=== PATIENT | female | born 1950 | race Caucasian/White ===

== ENCOUNTER 2018-01-29 08:02 | Emergency (ER) | payer MEDICARE, OTHER ==
[~2018-01-29] VITALS: Ht 175.3 cm; Wt 69.8 kg
--- OUTSIDE RECORDS SUMMARY | ~2018-01-29 | XMS | Clinical Summary ---
Demographics + + + | Address | [address] | | | [place] [address] | + + + | Home Phone | | + + + | Preferred Language | Unknown | + + + | Marital Status | | + + + | Confucianism Affiliation | 1041 | + + + | Race | Unknown | + + + | Ethnic Group | Unknown | + + + Author + + + | Author | [facility] | + + + | Organization | [facility] | + + + | Address | Unknown | + + + | Phone | Unavailable | + + + Support + + + + + | Name | Relationship | Address | Phone | + + + + + | Celso Cheng | ECON | [address] | + | | | | [place] | | | | | [address] | | + + + + + | Harsha Fish | NEERAJ | Unknown | | + + + + + Care Team Providers + +------+ + | Care Oil Well Services Field Supervisor Name | Role | Phone | + [...] +------+-------+ + | MEDICARE | MEDICA | [id number] | | | [address] | | | RE | | | | [place] [address] | | | IP-OP | | | | | + +--------+ +------+-------+ + | ODS HEALTH PLAN | ODS | [id number] | | | | | | HEALTH [...] | | 1951 | [phone] | [place] | | | [place] | | | 1999 | [phone] | + +--------+ +--------+ + +
--- OUTSIDE RECORDS SUMMARY | ~2018-01-29 | XMS | Clinical Summary ---
Demographics + + + | Address | [address] | | | [place] [address] | + + + | Home Phone | | + + + | Preferred Language | Unknown | + + + | Marital Status | | + + + | Scientology Affiliation | 1041 | + + + | Race | Unknown | + + + | Ethnic Group | Unknown | + + + Author + + + | Author | [facility] | | | and Waltana | + + + | Organization | [facility] | | | and Waltana [...] Team Providers + +------+ + | Care Sr. Media Manager Name | Role | Phone | + [...] (PROZAC) 20 mg | | | | /20 | | e | | capsule | [...] Temperature | 35.9 C (96.7 F) | 10/20/201755 PDT | + + + + | [...] | Body Mass Index | 22.89 | 10/20/2017954 PDT | + + + + Plan [...] + + | MODA | MODA | [id number] | Indemn | [phone] | [address] [address] | | | HEALTH | | ity | [phone] | [place] [address] | | | MDCR | | | | | | | SUPPL | | | | | + +--------+ +--------+ + + | MEDICARE | MEDICA | [id number] | Medica | [phone]- | | | | RE | | [...] | 1951 | [phone] | [place] [address] | | | [place] | | | [address] | | + +--------+ +--------+ + +
[~2018-01-29 08:02] MED LIST: ACID CONTROL150 MG PO; DILTIAZEM 24HR240 MG PO; EPIPEN 2-P0.3 MG/0.3 IM; FLUOXETINE HCL20 MG PO; LOSARTAN POTAS100 MG PO; OMEPRAZOLE20 MG PO; PREDNISONE20 MG PO; SUPER B COMPLE150 MG PO; TRAZODONE HCL50 MG PO
[2018-01-29] MEDS ORDERED: METHYLPREDNISOLO4 M1 PO (08:24)
[2018-01-29] MEDS ORDERED: DILTIAZEM ER120 MG PO (08:30)
== END 2018-01-29 09:30 | disposition home or self-care (01) ==
LOC: ED 08:02
DX: T78.3XXA Angioneurotic edema, initial encounter (principal); T46.4X5A Adverse effect of angiotensin-converting-enzyme inhibitors, initial encounter; I10 Essential (primary) hypertension; Z87.891 Personal history of nicotine dependence; Z88.0 Allergy status to penicillin; Z88.8 Allergy status to other drugs, medicaments and biological substances; Z88.1 Allergy status to other antibiotic agents; Z88.5 Allergy status to narcotic agent; Z88.2 Allergy status to sulfonamides; Z79.899 Other long term (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 therapy; Z79.52 Long term (current) use of systemic steroids
CPT/HCPCS: 96374; 96375; 99283; J1100; J1200

== ENCOUNTER 2018-03-06 13:38 | Emergency (ER) | payer MEDICARE, OTHER ==
[~2018-03-06] VITALS: Ht 175.3 cm; Wt 69.8 kg
--- OUTSIDE RECORDS SUMMARY | ~2018-03-06 | XMS | Clinical Summary ---
Demographics + + + | Address | [address] | | | [place] [address] | + + + | Home Phone | | + + + | Preferred Language | Unknown | + + + | Marital Status | | + + + | Protestant Affiliation | 1041 | + + + | Race | Unknown | + + + | Ethnic Group | Unknown | + + + Author + + + | Author | [facility] | | | and Waltana | + + + | Organization | [facility] | | | and [place] | + + + | Address | Unknown | + + + | Phone | Unavailable | + + + Support + + +---------+ + | Name | Relationship | Address | Phone | + + +---------+ + | MARIANA CHENG | ECON | Unknown | | + + +---------+ + | Celso Cheng | ECON | Unknown | | + + +---------+ + | ROBIN CARRERA | ECON | Unknown | | + + +---------+ + Care Team Providers + +------+ + | Care Assembler Chassis Name | Role | Phone | + +------+ + | Ebenezer Prado DO | PP | | + +------+ + Allergies + + + + + + | Active Allergy | Reactions | Severity | Noted | Comments | | | | | Date | | + + + + + + | Morphine And Related | Rash | Medium | 10/26/19 | | | | | | 11 | | + + + + + + | Penicillins | Rash | Medium | 10/26/19 | | | | | | 11 | | + + + + + + Current Medications + + +-------+---------+------+------+-------+ | Prescription | Sig. | Disp. | Refills | Star | End | Statu | | | | | | t | Date | s | | | | | | Date | | | + + +-------+---------+------+------+-------+ | FLUoxetine | | | | 01/2 | | Activ | | (PROZAC) 20 mg | | | | 5/20 | | e | | capsule | | | | 17 | | | + + +-------+---------+------+------+-------+ | | | | | 03/2 | | Activ | | hydroCHLOROthiazide | | | | 1/20 | | e | | (MICROZIDE) 12.5 MG | | | | 17 | | | | capsule | | | | | | | + + +-------+---------+------+------+-------+ | losartan (COZAAR) | | | | 03/0 | | Activ | | 100 MG tablet | | | | 2/20 | | e | | | | | | 17 | | | + + +-------+---------+------+------+-------+ | traZODone | | | | 03/2 | | Activ | | (DESYREL) 50 mg | | | | 1/20 | | e | | tablet | | | | 17 | | | + + +-------+---------+------+------+-------+ | cyanocobalamin | Take 50 mcg by mouth | | | | | Activ | | (VITAMIN B-12) 100 | Daily. | | | | | e | | MCG tablet | | | | | | | + + +-------+---------+------+------+-------+ Active Problems Not on file Social History + +-------+ +--------+ + | Tobacco Use | Types | Packs/Day | Years | Date | | | | | Used | | + +-------+ +--------+ + | Former Smoker | | | | Started: 1970 | + +-------+ +--------+ + + +---+---+---+ | Smokeless Tobacco: | | | | | Never Used | | | | + +---+---+---+ + + +---------+ + | Alcohol Use | Drinks/We | oz/Week | Comments | | | ek | | | + + +---------+ + | Yes | 14 | 8.4 | | | | Glasses | | | | | of wine | | | + + +---------+ + + + + | Sex Assigned at | Date Recorded | | | | + + + | Not on file | | + + + Last Filed Vital Signs + + + + | Vital Sign | Reading | Time Taken | + + + + | Blood Pressure | 154/87 | 10/20/20171430 PDT | + + + + | Pulse | 93 | 10/20/20171430 PDT | + + + + | Temperature | 35.9 C (96.7 F) | 10/20/2017954 PDT | + + + + | Respiratory Rate | 24 | 10/20/20171430 PDT | + + + + | Oxygen Saturation | 98% | 10/20/20171430 PDT | + + + + | Inhaled Oxygen | - | - | | Concentration | | | + + + + | Weight | 70.3 kg (155 lb) | 10/20/2017954 PDT | + + + + | Height | 175.3 cm (5' 9") | 10/20/2017954 PDT | + + + + | Body Mass Index | 22.89 | 10/20/2017 0955 PDT | + + + + Plan of Treatment + + + + + | Health Maintenance | Due Date | Last Done | Comments | + + + + + | Vaccine: | | | | | Dtap/Tdap/Td (1 - | 9 | | | | Tdap) | | | | + + + + + | Vaccine: Zoster (1 | | | | | of 2) | 0 | | | + + + + + | Vaccine: | | | | | Pneumococcal 65+ | 5 | | | | Low/Medium Risk (1 | | | | | of 2 - PCV13) | | | | + + + + + | Vaccine: Influenza | | | | | (#1) | 8 | | | + + + + + Results Not on filefrom Last 3 Months Insurance + +--------+ +--------+ + + | Payer | Benefi | Subscriber | Type | Phone | Address | | | t Plan | ID | | | | | | / | | | | | | | Group | | | | | + +--------+ +--------+ + + | MODA | MODA | [id number] | Indmartinezn | [phone] | [address] [address] | | | HEALTH | | ity | [address] | [place] [address] | | | MDCR | | | | | | | SUPPL | | | | | + +--------+ +--------+ + + | MEDICARE | MEDICA | [id number] | Medica | [phone] | | | RE | | re | [phone] | | | | PART A | | | | | | | AND B | | | | | + +--------+ +--------+ + + + +--------+ +--------+ + + | Guarantor Name | Accoun | Relation to | Date | Phone | Billing Address | | | t Type | Patient | of | | | | | | | | | | + +--------+ +--------+ + + | ABHIJEET CHENG | Person | Self | [birth year] | Home: | [address] | | | al/Fam | | 1951 | [phone] | [place] [address] | | | [place] | | | [address] | | + +--------+ +--------+ + +
--- OUTSIDE RECORDS SUMMARY | ~2018-03-06 | XMS | Clinical Summary ---
Demographics + + + | Address | [address] | | | [place] [address] | + + + | Home Phone | | + + + | Preferred Language | Unknown | + + + | Marital Status | | + + + | Tenriism Affiliation | 1041 | + + + | Race | Unknown | + + + | Ethnic Group | Unknown | + + + Author + + + | Author | [facility] | + + + | Organization | [facility] | + + + | Address | Unknown | + + + | Phone | Unavailable | + + + Support + + + + + | Name | Relationship | Address | Phone | + + + + + | Celso Cheng | ECON | [address] | + | | | | [place] | | | | | [address] | | + + + + + | Harsha Fish | NEERAJ | Unknown | | + + + + + Care Team Providers + +------+ + | Care Ore Miner Blasting Name | Role | Phone | + +------+ + | David House MD | PP | | + +------+ + [...] + + + + + + | Other | Other (See Comments) | Medium | 10/26/19 | Metal-david and | | | | | 11 | some gold | + + + + + + | Penicillins | Rash | Medium | 10/26/19 | | | | | | 11 | | + + + + + + Current Medications + +------+-------+---------+------+------+-------+ | Prescription | Sig. | Disp. | Refills | Star | End | Statu | | | | | | t | Date | s | | | | | | Date | | | + +------+-------+---------+------+------+-------+ | buPROPion | | | | 03/0 | | Activ | | (WELLBUTRIN SR) 150 | | | | 2/20 | | e | | MG 12 hr tablet | | | | 17 | | | + +------+-------+---------+------+------+-------+ | clindamycin | | | | 03/1 | | Activ | | (CLEOCIN) 300 MG | | | | 3/20 | | e | | capsule | | | | 17 | | | + +------+-------+---------+------+------+-------+ | diltiazem | | | | 03/0 | | Activ | | (CARDIZEM CD) 240 MG | | | | 2/20 | | e | | 24 hr capsule | | | | 17 | | | + +------+-------+---------+------+------+-------+ | estradiol | | | | 02/1 | | Activ | | (ESTRACE) 0.5 MG | | | | 4/20 | | e | | tablet | | | | 17 | | | + +------+-------+---------+------+------+-------+ | FLUoxetine | | | | 01/2 | | Activ | | (PROZAC) 20 MG | | | | 5/20 | | e | | capsule | | | | 17 | | | + +------+-------+---------+------+------+-------+ | | | | | 03/2 | | Activ | | hydrochlorothiazide | | | | 1/20 | | e | | (MICROZIDE) 12.5 MG | | | | 17 | | | | capsule | | | | | | | + +------+-------+---------+------+------+-------+ | traZODone | | | | 03/2 | | Activ | | (DESYREL) 50 MG | | | | 1/20 | | e | | tablet | | | | 17 | | | + +------+-------+---------+------+------+-------+ | predniSONE | | | | 01/2 | | Activ | | (DELTASONE) 20 MG | | | | 6/20 | | e | | tablet | | | | 17 | | | + +------+-------+---------+------+------+-------+ | omeprazole | | | | 03/0 | | Activ | | (PRILOSEC) 40 MG | | | | 2/20 | | e | | capsule | | | | 17 | | | + +------+-------+---------+------+------+-------+ | losartan (COZAAR) | | | | 03/0 | | Activ | | 100 MG tablet | | | | 2/20 | | e | | | | | | 17 | | | + +------+-------+---------+------+------+-------+ Active Problems + + + | Problem | Noted Date | + + + | Idiopathic normal pressure hydrocephalus (INPH) | 07/27/2016 | + + + | Presence of programmable ventriculoperitoneal shunt | 07/27/2016 | + + + Family History + + +------+ + | Medical History | Relation | Name | Comments | + + +------+ + | Cancer | Father | | | + + +------+ + | Lung cancer | Father | | | + + +------+ + | Hypertension | Mother | | | + + +------+ + | Stroke | Mother | | | + + +------+ + | Heart disease | Other | | | + + +------+ + | Hypertension | Other | | | + + +------+ + | Lung cancer | Other | | | + + +------+ + | Stroke | Other | | | + + +------+ + + +------+ + + | Relation | Name | Status | Comments | + +------+ + + | Father | | | | + +------+ + + | Mother | | | | + +------+ + + | Other | | | | + +------+ + + Social History + +-------+ +--------+ + | Tobacco Use | Types | Packs/Day | Years | Date | | | | | Used | | + +-------+ +--------+ + | Former Smoker | | | | Quit: 04/30/1976 | + +-------+ +--------+ + + + +---------+ + | Alcohol Use | Drinks/We | oz/Week | Comments | | | ek | | | + + +---------+ + | Yes | 3 | 7.8 | | | | Glasses | | | | | of wine | | | | | 10 | | | | | Standard | | | | | drinks or | | | | | | | | | | equivalen | | | | | t | | | + + +---------+ + + + + | Sex Assigned at | Date Recorded | | | | + + + | Not on file | | + + + Last Filed Vital Signs + + + + | Vital Sign | Reading | Time Taken | + + + + | Blood Pressure | 144/80 | 07/27/2016 1:23 PM PDT | + + + + | Pulse | 83 | 07/27/2016 1:23 PM PDT | + + + + | Temperature | - | - | + + + + | Respiratory Rate | - | - | + + + + | Oxygen Saturation | 94% | 07/27/2016 1:23 PM PDT | + + + + | Inhaled Oxygen | - | - | | Concentration | | | + + + + | Weight | 70.3 kg (155 lb) | 07/27/2016 1:23 PM PDT | + + + + | Height | 175.3 cm (5' 9") | 07/27/2016 1:23 PM PDT | + + + + | Body Mass Index | 22.89 | 07/27/2016 1:23 PM PDT | + + + + Plan of Treatment + + + + + | Health Maintenance | Due Date | Last Done | Comments | + + + + + | Vaccine: | | | | | Dtap/Tdap/Td (1 - | 9 | | | | Tdap) | | | | + + + + + | Breast Cancer | | | | | Screening | 0 | | | | (Mammogram) | | | | + + + + + | Colon Cancer | | | | | Screening | 0 | | | | (Colonoscopy) | | | | + + + + + | Vaccine: Zoster (1 | | | | | of 2) | 0 | | | + + + + + | DEXA SCAN SCREENING | | | | | | 5 | | | + + + + [...] filefrom Last 3 Months Insurance + +--------+ +------+-------+ + | Payer | Benefi | Subscriber | Type | Phone | Address | | | t Plan | ID | | | | | | / | | | | | | | Group | | | | | + +--------+ +------+-------+ + | MEDICARE | MEDICA | [id number] | | | [address] | | | RE | | | | [place] [address] | | | IP-OP | | | | | + +--------+ +------+-------+ + | ODS HEALTH PLAN | ODS | [id number] | | | | | | HEALTH | | | | | | | PLAN | | | | | + +--------+ +------+-------+ + + +--------+ +--------+ + + | Guarantor Name | Accoun | Relation to | Date | Phone | Billing Address | | | t Type | Patient | of | | | | | | | | | | + +--------+ +--------+ + + | ABHIJEET CHENG | Person | Self [birth year] | Home: | [address] | | | al/Fam | | 1951 | [phone] | [place] | | | [place] | | | 1999 | [phone] | + +--------+ +--------+ + +
--- OUTSIDE RECORDS SUMMARY | ~2018-03-06 | XMS | Clinical Summary ---
Demographics + + + | Address | [address] | | | [place] [address] | + + + | Home Phone | | + + + | Preferred Language | Unknown | + + + | Marital Status | | + + + | Sikhism Affiliation | 1041 | + + + | Race | Unknown | + + + | Ethnic Group | Unknown | + + + Author + + + | Author | [facility] | + + + | Organization | [facility] | + + + | Address | Unknown | + + + | Phone | Unavailable | + + + Support + + + + + | Name | Relationship | Address | Phone | + + + + + | Celso Cheng | ECON | [address] | + | | | | [place] | | | | | [address] | | + + + + + | Harsha Fish | NEERAJ | Unknown | | + + + + + Care Team Providers + +------+ + | Care Finisher Plate Name | Role | Phone | + [...] +------+-------+ + | MEDICARE | MEDICA | [id number] | | | [address] | | | RE | | | | [place] [address] | | | IP-OP | | | | | + +--------+ +------+-------+ + | ODS HEALTH PLAN | ODS | [id number] | | | | | | HEALTH [...] | [place] | | | 1999 | [phone] | + +--------+ +--------+ + +
--- OUTSIDE RECORDS SUMMARY | ~2018-03-06 | XMS | Clinical Summary ---
Demographics + + + | Address | [address] | | | [place] [address] | + + + | Home Phone | | + + + | Preferred Language | Unknown | + + + | Marital Status | | + + + | Sabianist Affiliation | 1041 | + + + | Race | Unknown | + + + | Ethnic Group | Unknown | + + + Author + + + | Author | [facility] | | | and Waltana | + + + | Organization | [facility] | | | and Waltana [...] Team Providers + +------+ + | Care Director Of Accreditation Name | Role | Phone | + [...] + + | MODA | MODA | [id number] | [place] | [phone] | [address] [address] | | | HEALTH | | ity | [address] | [place] [address] | | | MDCR | | | | | | | SUPPL | | | | | + +--------+ +--------+ + + | MEDICARE | MEDICA | [id number] | Medica | [phone] | | | | RE | | [...] | 1951 | [phone] | [place] [address] | | | [place] | | | [address] | | + +--------+ +--------+ + +
[~2018-03-06 13:38] MED LIST changes: +DILTIAZEM ER120 MG PO; +METHYLPREDNISOLO4 M1 PO
--- OUTSIDE RECORDS SUMMARY | 2018-03-06 13:42 | XMS ---
PreManage Notification: MURPHY CHENG Security Pipe Layer Events No recent Security Events currently on file CRITERIA MET - - 2 Visits in 30 Days CARE PROVIDERS ROLY PICHARDO DO Internal Medicine 02/21/2018-Current PHONE: Unknown David House MD Primary Care Current PHONE: Unknown orkiya Case or Wooden Tank Erector Current PHONE: Unknown Stephanie has no Care Guidelines for this patient. Care History Medical/Surgical 02/21/2018 [facility] - Patient is currently established with [facility]. If patient is seen in the ED during business hours. Please contact [facility] at [facility]. Care Recommendation: This patient has had 5 or more Emergency Department visits in the last 12 months.\T\nbsp; Patient requires education on the scope and purpose of the ED as an acute care provider not a Primary Care Provider and should not be utilized for chronic conditions.\T\nbsp; These are guidelines and the provider should exercise clinical judgment when providing care. E.D. VISIT COUNT (12 MO.) 1 [facility] 4 [facility] TOTAL 5 NOTE: Visits indicate total known visits. 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 - Essential (primary) hypertension - Allergy status to narcotic agent status - Allergy status to other drugs, medicaments and biological substances status - Angioneurotic edema, initial encounter - Allergy status to penicillin 01/29/2018 08:02 [facility] [place] TYPE: Emergency COMPLAINT: - FACIAL SWELLING,NON INJURY DIAGNOSES: - Personal history of nicotine dependence - Allergy status to other antibiotic agents status - Allergy status to narcotic agent status - Adverse effect of ylbbrrghtwv-ephyacuufo-jyqqip inhibitors, initial encounter - Allergy status to sulfonamides status - Allergy status to penicillin - 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
[2018-03-06] MEDS ORDERED: ANU MED PR (14:36)
[2018-03-06] MEDS ORDERED: CLINDA-BENZOYL35 GM TOP (14:36)
[2018-03-06] MEDS ORDERED: ANUSOL-HC30 GM TOP (14:36)
== END 2018-03-06 14:49 | disposition home or self-care (01) ==
LOC: ED 13:38
DX: K64.4 Residual hemorrhoidal skin tags (principal); L70.9 Acne, unspecified; I10 Essential (primary) hypertension; Z88.0 Allergy status to penicillin; Z88.8 Allergy status to other drugs, medicaments and biological substances; Z88.1 Allergy status to other antibiotic agents; Z88.5 Allergy status to narcotic agent; Z88.2 Allergy status to sulfonamides; Z79.899 Other long term (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 therapy
CPT/HCPCS: 99282

== ENCOUNTER 2019-12-27 10:59 | Emergency (ER) | payer MEDICARE, OTHER ==
[~2019-12-27] VITALS: Ht 175.3 cm; Wt 69.8 kg
[~2019-12-27 10:59] MED LIST changes: +ANU MED PR; +ANUSOL-HC30 GM TOP; +CLINDA-BENZOYL35 GM TOP
[2019-12-27] MEDS ORDERED: PREDNISONE20 MG PO (13:16)
== END 2019-12-27 13:30 | disposition home or self-care (01) ==
LOC: ED 10:59
DX: T78.3XXA Angioneurotic edema, initial encounter (principal); I10 Essential (primary) hypertension; Z87.891 Personal history of nicotine dependence; Z88.0 Allergy status to penicillin; Z88.5 Allergy status to narcotic agent; Z88.8 Allergy status to other drugs, medicaments and biological substances; Z88.1 Allergy status to other antibiotic agents; Z88.2 Allergy status to sulfonamides; Z79.899 Other long term (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 therapy
CPT/HCPCS: 99283; J7512

== ENCOUNTER 2020-02-16 06:05 | Day surgery (SDC) | payer MEDICARE, OTHER ==
--- NOTE | 2020-02-16 08:37 | NUR ---
02/16/20 0837 Annie Solis 0831- PT ARRIVES TO PACU AROUSABLE TO VOICE. PT DOES NOT ANSWER QUESTIONS AND FALLS INSTANTLY BACK TO SLEEP WHEN NOT BEING TALKED TO. RESP EVEN AND UNLABORED. OXYGEN SAT HIGH 90'S TO 100% ON 3L VIA NC. 0879- DR. MOTT AT THE BEDSIDE TO TALK WITH THE PT.
--- NOTE | 2020-02-16 09:22 | NUR ---
PT ALERT, ORIENTED AND HERE FOR HER FIRST SCOPE. PT IS RATHER SUBDUED, ALL QUESTIONS ASKED WERE ANSWERED. PT DID REQUEST PRAYER, G.SON TO PICKUP FROM [place]
--- NOTE | 2020-02-16 09:41 | NUR ---
PT RETURNED TO DAY SURGERY SITTING UP AND TAKING SIPS OF APPLE JUICE. REPORT RECIEVED. WILL PLAN FOR DISCHARGE AFTER PT HAS MORE TIME TO METABOLIZE MEDICATION.
--- NOTE | 2020-02-16 10:14 | NUR ---
STEADY ON FEET WITH ONE PERSON STAND BY ASSIST FOR TRANSFER TO CHAIR AT BEDSIDE AT 0945. PT EATING CRACKERS AND SIPPING WATER WHILE REVIEWING DISCHARGE INSTRUCTIONS. PT DISCHARGED WITH COPY OF INSTRUCTIONS, DIVERTICULAR BOOLKET, ACID REFLUX BOOKLET, AND COPY OF MD PROCEDURE REPORT WITH PICTURES.
--- NOTE | 2020-02-17 14:12 | PATH ---
[facility] [address] [place], [place] [address] Signed SPECIMEN(S): A DUODENUM SPECIMEN(S): B ANTRUM SPECIMEN(S): C DISTAL ESOPHAGUS SPECIMEN SOURCE: A. DUODENUM B. ANTRUM C. DISTAL ESOPHAGUS CLINICAL HISTORY: Anemia; + Cologard test (anemia) MICROSCOPIC DESCRIPTION: Histologic sections of all submitted blocks are examined by light microscopy. These findings, together with the gross examination, support the pathologic diagnosis. FINAL PATHOLOGIC DIAGNOSIS: A. Duodenum, biopsy: - Duodenal mucosa with no histopathologic abnormality. - Negative for increased intraepithelial lymphocytes. - Negative for dysplasia or malignancy. B. Stomach, antrum, biopsy: - Antral mucosa with reactive gastropathy. - Negative for Helicobacter organisms on HE stain. - Negative for dysplasia or malignancy. C. Esophagus, distal, biopsy: - Squamocolumnar junctional mucosa and cardia-oxyntic type mucosa with no histopathologic abnormality. - Negative for Helicobacter organisms on HE stain. - Negative for intestinal metaplasia, dysplasia, or malignancy. NAL:cml:C2NR GROSS DESCRIPTION: Three specimens are received in three containers, labeled "TL." A. The specimen, labeled "TL, #1," and designated on the requisition "duodenum," is received in formalin and consists of three howell soft tissue fragment(s) that measure 0.3 cm in greatest dimension. The specimen is entirely submitted in cassette (A1). B. The specimen, labeled "TL, #2," and designated on the requisition "antrum," is received in formalin and consists of two howell soft tissue fragment(s) that measure 0.3 cm in greatest dimension. The PATIENT NAME: MURPHY CHENG PATHOLOGY DATE OF : 48 REPORT #: [id number] PHYSICIAN: GLORIA YIN PCP: ROLY PICHARDO DO REPORT IS CONFIDENTIAL AND NOT TO BE RELEASED WITHOUT AUTHORIZATION [facility] [address] [id number] Signed specimen is entirely submitted in cassette (B1). C. The specimen, labeled "TL, #3," and designated on the requisition "distal esophagus," is received in formalin and consists of three howell soft tissue fragment(s) that measure 0.4 cm in greatest dimension. The specimen is entirely submitted in cassette (C1). AT (under the direct supervision of a pathologist) The Gross Description was prepared using a voice recognition system. The report was reviewed for accuracy; however, sound-alike word errors, addition and/or deletions may occur. If there is any question about this report, please contact Client Services. PERFORMING LABORATORY: The technical component was performed by [facility], [address] [place] [id number] (Engineering Faculty Member: Libby Goldberg MD; CLIA# [id number]). [facility] [address] [address] (CLIA# [id number]). Diagnostician: Mildred Gacres MD Pathologist Electronically Signed 02/17/2020 Copies: ~ PATIENT NAME: MURPHY CHENG PATHOLOGY DATE OF : 48 REPORT #: [id number] PHYSICIAN: GLORIA PATHOLOGY PCP: ROLY PICHARDO DO REPORT IS CONFIDENTIAL AND NOT TO BE RELEASED WITHOUT AUTHORIZATION
--- NOTE | 2020-02-18 12:08 | OR ---
[facility] [address], [place] [address] Signed DATE OF OPERATION: 02/16/2020 SURGEON: Jaun Mott MD PREOPERATIVE DIAGNOSES: 1. Positive Cologuard test in September 2019. 2. Known idiopathic angioedema. 3. Recurrent anemia without overt hematemesis or blood per rectum. POSTOPERATIVE DIAGNOSES: 1. Diverticular changes of sigmoid, no evidence of polyp throughout colon. 2. Upper endoscopy normal except for hiatal hernia and low-grade Larsen's esophagus. PROCEDURES: 1. Esophagogastroduodenoscopy with biopsy. 2. Total colonoscopy to cecum. ANESTHESIA: Intravenous sedation, fentanyl 225 mcg and Versed 6 mg (total). INDICATIONS: This 69-year-old white woman is a patient of Dr. Pichardo and was found to have anemia, having undergone transfusion and Cologuard test, which was positive performed on October 27, 2019. Due to the viral pandemic, she has delayed evaluation. She was recently found to have hematocrit of 24. She has had no hematemesis or blood per rectum. She was scheduled for colonoscopy on the basis of her Cologuard test. She will undergo colonoscopy today, having undergone a full bowel prep. As always, I did recommend that if necessary, other indicated procedures to be performed including upper endoscopy, and she agreed to that subsequently. DESCRIPTION OF PROCEDURE: The patient was brought to the endoscopy suite and placed in lateral decubitus position given intravenous sedation to the point of slurred speech and nystagmus with full cardiopulmonary monitoring. She received preoperative antibiotic, clindamycin based on joint replacement history as well as hydrocortisone based on angioedema history, which remains idiopathic. Digital rectal examination was found to be normal. An Olympus video colonoscope was passed into the rectum and manipulated into the sigmoid, where angulation of deformity was considerable. Diverticula were noted. With Electronically Signed By: JAUN MOTT MD 02/18/20 1208 PATIENT NAME: MURPHY CHENG OPERATIVE REPORT DATE OF : 48 REPORT #: [id number] PHYSICIAN: JAUN MOTT MD PCP: ROLY PICHARDO DO REPORT IS CONFIDENTIAL AND NOT TO BE RELEASED WITHOUT AUTHORIZATION [facility] [address], [place] [address] Signed the patient's time and fair amount of effort, the scope was ultimately negotiated, past the sigmoid and then ultimately to the cecum. The splenic flexure was rather prominent as regard to appearance, though I know of no overtly enlarged spleen. The scope was ultimately advanced to the cecum itself. The ileocecal valve and appendiceal orifice were noted to be normal. Irrigation was undertaken. The scope was carefully withdrawn, and with meticulous painstaking deliberation, examination throughout undertaken, showing no sign of polyps or cancer to correlate to Cologuard test. Diverticula were seen in the sigmoid of course. Retroflexed view showed some internal hemorrhoidal changes. The scope was removed. Mindful that the primary indication for colonoscopy was a positive Cologuard test, but with concordant anemia as part of the picture, consideration was made for upper endoscopy. Given the logistical situation we are currently facing with a viral pandemic and so forth, I did confer with the patient (though previously sedated) about the advisability of upper endoscopy at this time. Performing endoscopy at this time would save a fair amount of delay due to our current requirements of COVID testing and so forth. She agreed to it. Lidocaine spray hypopharyngeal anesthesia was given. A bite block placed. Additional sedation given. An Olympus video upper endoscope passed into the hypopharynx. The vocal cords were normal. Scope was advanced to the esophagus, which was normal except for some Larsen's epithelium in the distal portion. The scope was advanced to the stomach, which was insufflated with air. Rugal folds were normal. There was no sign of ulceration or blood. The antrum was normal. Pylorus was normal. The scope was passed through into the duodenum, which was also normal. Biopsies were taken of the duodenum and the antrum for both VIANEY and pathologic testing. Retroflexed view was undertaken showing a relatively large hiatal hernia. There was minor inflammation in the GE junction. The scope was withdrawn to the distal esophagus and biopsies taken of medical field representative Larsen's epithelium. Further withdrawal of scope showed no other abnormality. The patient was taken to the recovery room in good condition. CONCLUDING DIAGNOSES: 1. No gastrointestinal source of bleeding. Mindful that small bowel has not been evaluated. 2. Diverticular changes of sigmoid. 3. Large hiatal hernia with associated Larsen's epithelium. PLAN: She will return to the ongoing care of Dr. Pichardo. Biopsies have been obtained of the duodenum to assess for celiac disease, uncommon, but known cause of chronic anemia, though endoscopic appearance of the duodenum is unlikely to be concordant to celiac disease. Electronically Signed By: JAUN MOTT MD 02/18/20 1208 PATIENT NAME: MURPHY CHENG OPERATIVE REPORT DATE OF : 48 REPORT #: [id number] PHYSICIAN: JAUN MOTT MD PCP: ROLY PICHARDO DO REPORT IS CONFIDENTIAL AND NOT TO BE RELEASED WITHOUT AUTHORIZATION [place] [phone] Signed MD ELIESER Ariza/MODL /[id number] cc: Roly Pichardo DO Copies: ROLY PICHARDO DO ~ Electronically Signed By: JAUN MOTT MD 02/18/20 1208 PATIENT NAME: MURPHY CHENG OPERATIVE REPORT DATE OF : 48 REPORT #: [id number] PHYSICIAN: JAUN MOTT MD PCP: ROLY PICHARDO DO REPORT IS CONFIDENTIAL AND NOT TO BE RELEASED WITHOUT AUTHORIZATION
== END 2020-02-16 10:05 | disposition home or self-care (01) ==
LOC: OPS 06:05 → DS 06:05 → OPS 07:30 → DS 07:30 → OPS 10:05
PROVIDERS: ATTEND Surgery
PROC: 0DB78ZX Excision of Stomach, Pylorus, Via Natural or Artificial Opening Endoscopic, Diagnostic (ICD-10-PCS; 2020-02-16)
PROC: 0DB38ZX Excision of Lower Esophagus, Via Natural or Artificial Opening Endoscopic, Diagnostic (ICD-10-PCS; 2020-02-16)
PROC: 0DJD8ZZ Inspection of Lower Intestinal Tract, Via Natural or Artificial Opening Endoscopic (ICD-10-PCS; principal; 2020-02-16 07:30)
PROC: 0DB98ZX Excision of Duodenum, Via Natural or Artificial Opening Endoscopic, Diagnostic (ICD-10-PCS; 2020-02-16 07:30)
DX: R19.5 Other fecal abnormalities (principal); K64.8 Other hemorrhoids; K57.30 Diverticulosis of large intestine without perforation or abscess without bleeding; D64.9 Anemia, unspecified; K31.9 Disease of stomach and duodenum, unspecified; K44.9 Diaphragmatic hernia without obstruction or gangrene; I10 Essential (primary) hypertension; F32.9 Major depressive disorder, single episode, unspecified; Z88.6 Allergy status to analgesic agent; Z88.1 Allergy status to other antibiotic agents; Z88.5 Allergy status to narcotic agent; Z88.0 Allergy status to penicillin; Z88.2 Allergy status to sulfonamides; Z88.8 Allergy status to other drugs, medicaments and biological substances; Z79.899 Other long term (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 therapy
CPT/HCPCS: 99153; G0500; J1720; J2250; J3010; J7121

== ENCOUNTER 2021-03-25 06:11 | Inpatient (IN) | payer MEDICARE, OTHER ==
[~2021-03-25] VITALS: Ht 175.3 cm; Wt 58.5 kg
[~2021-03-25 06:11] MED LIST changes: +BENADRYL25 MG PO; +DILT-XR240 MG PO; +FAMOTIDINE20 MG PO; +PROAIR HFA8.5 GM INH
--- OUTSIDE RECORDS SUMMARY | 2021-03-25 06:18 | XMS ---
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 - 2 Visits in 30 Days CARE PROVIDERS ROLY PICHARDO Internal Medicine Current [facility]: [phone] [facility] PHONE: [phone] Stephanie has no Care Guidelines for this patient. Care History Medical/Surgical 02/21/2018 [facility] - Patient is currently established with [facility]. If patient is seen in the ED during business hours. Please contact CHWs at [facility]. Care Recommendation: This patient has had [...] providing care. E.D. VISIT COUNT (12 MO.) 3 YECENIA Gonzales TOTAL 3 NOTE: Visits indicate total known visits. ED/UCC VISIT TRACKING (12 MO.) 03/25/2021 06:12 YECENIA Goodman [place] TYPE: Emergency COMPLAINT: - FALL, NECK PAIN 03/21/2021 04:41 YECENIA Goodman [place] TYPE: Emergency COMPLAINT: - THROAT CLOSING UP 06/23/2020 08:35 YECENIA Goodman [place] TYPE: Emergency COMPLAINT: - SWOLLEN FACE DIAGNOSES: - Personal history of nicotine dependence - Essential (primary) hypertension - Allergy status to penicillin - Angioneurotic edema, initial encounter - Allergy status to other antibiotic agents - Allergy status to analgesic agent - Allergy status to other drugs, medicaments and biological substances - Other terminal carman (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 therapy - Allergy status to narcotic agent INPATIENT VISIT TRACKING (12 MO.) 03/21/2021 04:42 YECENIA Goodman [place] TYPE: Observation COMPLAINT: - ANGIO EDEMA DIAGNOSES: - Major depressive disorder, single episode, unspecified - penitentiary (current) use of aspirin - Essential (primary) hypertension - Presence of right artificial knee joint - Angioneurotic edema, initial encounter - Personal history of nicotine dependence - Gastro-esophageal reflux disease without esophagitis [email or web address]
--- NOTE | 2021-03-25 14:20 | NUR ---
REPORT RECIEVED FROM ISIDRO LANCE. AWAITING PTS ARRIVAL TO UNIT.
--- NOTE | 2021-03-25 14:23 | NUR ---
PT ARRIVED FROM ER. PT NOTED TO LIFT LEGS IN BED WELL ARMS TO REPOSITION SELF. PT REFUSES TO GET UP OUT OF BED AT THIS TIME. TRANSFERED TO BED WITH 3 PERSON ASSIST AND SLID BOARD. PT ANGRY WITH CARES "DON'T MOVE ME! I DONT' WANT TO BE MOVED!" PT REPORTS 8/10 ACHING PAIN IN NECK. ASPEN COLLAR REMAINS IN PLACE PLACED BY ER. NO ADJUSTMENTS MADE. MEDICATION GIVEN FOR PAIN (SEE MAR). PT DENIES NAUSEA. LUNG SOUNDS CLEAR. HEART TONES REGULAR. NO EDEMA NOTED. PT DENIES PAIN TO EXTREMTIES, DENIES CALF PAIN OR ARM PAIN. LEATHER WHITENER STRENGTH WNL, STRONG PLANTAR AND DORSI FLEXION NOTED. PT IS ABLE TO LIFT LEGS OFF THE BED. PT REPORTS "I WON'T DO WHAT YOU SAY! i DON'T WANT TO MOVE!" PT REPORTS SHE IS UNABLE TO MOVE HER ARMS AND LEGS BECUASE OF PAIN. BOWEL TONES HYPOACTIVE. PT ASSISTED WITH DRINKING WATER AND TAKING MEDICATIONS. PT REPORTS SHE DOES NOT KNOW WHEN HER LAST BOWEL MOVEMENT WAS "A LONG TIME AGO" BOWEL REGEMINE MEDICATIONS ORDERED. PT REPORTS INCONTINANCE PER BASELINE, OWENS IN PLACE PLACED BY ER. PT DENIES ADDITIONAL REQUESTS OR COMPLAINTS "I DON'T WANT ANYTHING ELSE! JUST LEAVE ME ALONE AND LET ME SLEEP FOR GOD'S SAKE!." BED RAILS UP. CALL LIGHT PATTIE VELASQUEZ. HEAD OF BE ELEVATED TO 33 DEGREES.
--- NOTE | 2021-03-25 15:02 | NUR ---
THIS RN TO ROOM TO CHECK ON PT. PT RESTING IN BED WITH EYES CLOSED, RESPRIRATIONS EVEN AND UNLABORED. PT AWAKENS TO VOICE AND LIGHT TOUCH. PT REPORTS ONGOING 8/10 PAIN IN HER NECK. RESPIRATION RATE NOTED TO BE 10-12, PT FALLS QUICKLY BACK TO SLEEP, SNORING NOTED. BED RAILS UP. CALL LIGHT WIHTIN REACH.
--- NOTE | 2021-03-25 15:20 | NUR ---
PTS SON MICHELLE CALLED AND UPDATED ON PT STATUS. MICHELLE STATES HE IS COMING TO THE HOSPITAL AT THIS TIME. MICHELLE VERBALIZES UNDERSTANDING OF PLAN OF CARE AND STATES HIS QUESTIONS HAVE BEEN ANSWERED.
--- NOTE | 2021-03-25 15:34 | NUR ---
PTS SON, MICHELLE, ARRIVED TO BEDSIDE. UPDATED ON PLAN OF CARE AND PT STATUS. PT CONTINUES TO REPORT 8/10 PAIN, SEE MAR FOR MEDICATION GIVEN. PT REFUSES REPOSITIONING. HEAD OF BED ELEVATED TO 33 DEGREES. TASHIA, RT TO BEDSIDE FOR RESPIRATORY EVALUATION. PT ASSISTED WITH PLACING DINNER ORDER. VITAL SIGNS REEVALUATED, BLOOD PRESSURE REMAINS ELEVATED. PT UNSURE OF WHAT MEDICATION SHE TAKES AT HOME FOR BLOOD PRESSURE CONTROL. PT DENIES ADDITIONAL REQUESTS OR COMPLAINTS. CALL LIGHT WITHIN REACH. PTS SON AT BEDSIDE. BED RAILS UP.
[2021-03-25] MEDS ORDERED: DOXYCYCLINE HY100 MG PO (16:08)
--- NOTE | 2021-03-25 16:16 | NUR ---
Medications reconciled using pharmacy records and DC orders from 4 days ago
--- NOTE | 2021-03-25 16:31 | NUR ---
DR. KRUEGER CALLED AND UPDATED ON PT STATUS. STATES PT DOES NOT NEED TELEMETRY MONITORING, ORDER DC'D. STATES HE WILL PLACE AN ORDER FOR ADDITIONAL BLOOD PRESSURE MEDICATIONS. NO ADDITIONAL NEW ORDERS AT THIS TIME.
--- NOTE | 2021-03-25 16:36 | NUR ---
THIS RN TO ROOM TO CHECK ON PT. PT RESTING IN BED WITH EYES CLOSED, RESPIATIONS EVEN AND UNLABORED. PT AWAKENS TO VOICE AND LIGHT TOUCH. PT REPORTS 7/10 PAIN IN BACK OF NECK, NO ADDITONAL PAIN MEDICATIONS AVALIABLE AT THIS TIME. PT DECLINES REPOSITIONING, YELLS "NO! DON'T MOVE ME AT ALL, DON'T TOUCH ME." WHEN THIS RN SUGGESTS DIFFERENT POSITIONING. ASPEN COLLAR REMAINS IN PLACE. EDUCATION DONE WITH PT REGARDING FRACTURE, PAIN CONTROL, AND LEAVING COLLAR IN PLACE. PT STATES "OH BOY, i DON'T WANT TO DO ANY OF THAT!" PT ASSISTED WITH DRINKIGN WATER, AGREES TO HOLD THE CUP ON HER OWN THIS TIME. HEAD OF BED REMAINS ELEVATED TO 31 DEGREES. NO ADDITIONAL REQUESTS OR COMPLAINTS AT THIS TIME. CALL LIGHT WITHIN REACH. BED RAILS UP.
--- NOTE | 2021-03-25 17:25 | NUR ---
DINNER ARRIVED DELIVERED TO PT. PT GIVEN OPTION OF HAVING HEAD OF BED RAISED TO EAT OR GETTING UP TO CHAIR. PT CHOOSES TO GET GET UP TO THE CHAIR. 2 PERSON ASSIST UP TO CHAIR. PT UNSURE OF SELF BUT VERY STRONG, ABLE TO SIT UP AND STAND WITH MINMIAL ASSISTANCE. PT AMBUALTES TO CHAIR. PT SAYING THE WHOLE TIME "I CAN'T DO THIS" "WHAT AM I DOING WRONG" PT ASSURED THAT SHE IS MOVING WELL. ASPEN COLLAR REMAINS IN PLACE THROUGHOUT MOVEMENT. PT REPORTS NAUSEA ONCE UP TO CHAIR. RESOLVES WITH ALCOHOL SWAB UNDER NOSE. IV ZOFRAN GIVEN TO ENSURE NAUSEA STAYS RESOLVED. PT REPORTS 7/10 PAIN IN HER NECK "LIKE A PINCHING." SEE MAR FOR MEDICATION GIVEN. BLOOD PRESSURE REMAINS VERY ELEVATED. NEW ORDERS GIVEN IN ADDITONAL TO PRN BLOOD PRESSURE MEDICATION. PT DENIES ADDITIONAL REQUESTS OR COMPLAINTS. CALL LIGHT WITHIN REACH.
--- NOTE | 2021-03-25 18:22 | NUR ---
THIS RN TO ROOM TO CHECK ON PT. PT REMAINS UP TO CHAIR. REPORTS SHE IS FINISHED WITH DINNER. PT REPORTS PAIN IS "GETTING BETTER." NOW 10/07. PT DENIES ADDITIONAL REQUESTS OR COMPLAINTS. CALL LIGHT WITHIN REACH.
--- NOTE | 2021-03-25 18:27 | NUR ---
PT ADMITTED THIS SHIFT FOR ODONTOID TYEP 3 FRACTURE AND ASSOSICATED PAIN CONTROL. PT UP TO CHAIR THIS EVENING WITH 2 PERSON LIGHT ASSIST, PT NEEDS A LOT OF ENCOURAGEMENT. FREQUENT PRN PAIN MEDICAITON GIVEN. PRN NAUSE MEDICAITON GIVEN WELL. ASPEN COLLAR REMAINS IN PLACE, EDUCATION DONE WITH PT. OWENS CATHETER REMAINS IN PLACE, PT REPORTS BASELINE INCONTINANCE, MD STATES TO LEAVE OWENS IN PLACE THROUGH THE NIGHT, QUANITTY IS SUFFICIENT. IV FLUID BOLUE GIVEN. PT TOELRATING PO INTAKE. PT USES CALL LIGHT AND MAKES NEEDS KNOWN.
--- NOTE | 2021-03-25 18:42 | NUR ---
Patient said she wants to sleep and now is in bed. Patient transfered from chair, FWW, 1PA. Patient seems stable when walking but is very hard of hearing without hearing aids. Patient did not want to use hearing aids at this time right before bedtime. Patient currently has the bed alarm on. Call light is in reach.
--- NOTE | 2021-03-25 19:37 | NUR ---
PT CALL LIGHT ON. PUMP ALARMING, INFUSION AND FLUSH COMPELTE. IV ASSESSED, WNL. NO S/S OF PHLEBITIS NOTED. IV FLUSHED AND ALCOCHOL CAP APPLIED. PT SHOUTING "OH GOD! OH GOD!" PT REPROTS 8 PAIN IN HER NECK. SEE MAR FOR MEDICATION GIVEN. ASPEN COLLAR REMAINS IN PLACE. PT REPOSITONED IN BED FOR COMFORT. PT SITTING STRAIGHT UP IN BED ON HER OWN ACCORD. PT ENCOUGED TO LAY BACK DOWN IF SHE WANTS TO. HEAD OF BED ELEVATED TO 30 DEGREES. PT STATES SHE JUST WANTS TO SIT UP FOR A WHILE. REPORT GIVEN TO ISIDRO SANCHEZ WHO IS AT BEDSIDE FOR CARES. PT DENIES ADDITONAL REQUESTS OR COMPLAINTS. CALL LIGHT WITHIN REACH. BED RAILS UP.
--- NOTE | 2021-03-25 19:40 | NUR ---
SHIFT REPORT RECEIVED FROM DOMINICK KANG AT BEDSIDE. pt GIVEN PRN PAIN MECIDATION FROM ISIDRO KANG, SEE EMAR. ASPEN COLLAR IN PLACE, REMAINS WNL. pt SITTING UPRIGHT IN BED WITH BED ALARM ON FOR SAFETY. CALL LIGHT IN REACH.
--- NOTE | 2021-03-25 19:59 | NUR ---
BED ALARM GOING OFF, pt ASKING FOR CUP SO SHE CAN "SPIT UP". EMESIS BAG PROVIDED, pt SPIT OUT THICK PHLEGM, YELLOW IN COLOR. NO EMESIS NOTED. COOL RAG PROVIDED, pt VERBALLY ENCOURAGED FROM SITTING TO LAYING POSITION PER pt REQUEST SHE WANTS TO "TRY AND GET SOME SLEEP". ASPEN COLLAR REMAINS IN PLACE, HOB REMAINS ELEVATED TO 30 DEGREES. LIGHTS OUT PER pt REQUEST, CALL LIGHT IN REACH AND BED ALARM ON.
--- NOTE | 2021-03-25 21:13 | NUR ---
PT CALLED REQUESTING A COOL WASHCLOTH, SHE DENIES FURTHER NEEDS AT THIS TIME. CALL LIGHT IS CLOSE. BED ALARM IS ON.
--- NOTE | 2021-03-25 22:10 | NUR ---
ASSESSMENT COMPLETE, SPO2 ALARMING, LOWEST READING NOTED ON RA WAS 78% BEFORE SUSTAINING IN LOW TO MID 80'S, pt PLACED ON 3LNC, SPO2 SUSTAINING NOW IN LOW TO MID 90'S. pt WAS RESTING QUIETLY IN BED WITH EYES CLOSED. RR EVEN AND UNLABORED, A/O TO ALL BUT DAY OF THE WEEK/TIME, UNABLE TO VIEW CLOCK D/T ASPEN NECK COLLAR WHICH REMAINS IN PLACE. NO REDDNESS OR SKIN BREAKDOWN NOTED AROUND COLLAR. pt REPORTS PAIN IMPROVED SINCE LAST ADMINISTRATION OF PAIN MEDICATION AT SHIFT CHANGE, NOW RATES PAIN AT A "TOLERABLE" 3-4. pt APPEARS MUCH MORE RELAXED AND CALM AT THIS TIME. pt SAT UPRIGHT IN BED FOR EVENING MEDS, NO ISSUES SWALLOWING NOTED. LAYING BACK IN BED WITH BED ALARM ON. pt POLITE AND STATES, "THANK YOU FOR ALL OF YOUR HELP, ALL OF YOU GUYS HAVE BEEN WONDERFUL". OWENS PATENT AND HANGING AT EDGE OF BED. NO FURTHER NEEDS, CALL LIGHT IN REACH.
--- NOTE | 2021-03-25 23:10 | NUR ---
ROUNDED ON pt, pt RESTING IN BED WITH EYES CLOSED. RR EVEN AND UNLABORED, RATE WNL. HOB REMAINS ELEVATED TO 30 DEGREES, D/T ASPIRATION PRECAUTIONS. ASPEN NECK COLLAR REMAINS IN PLACE, SPO2 MID 90'S ON 3LNC, TITRATED TO 2.5LNC. HR WNL. pt ALLOWED TO REST, CALL LIGHT IN REACH. BED ALARM ON FOR SAFETY.
--- NOTE | 2021-03-26 01:00 | NUR ---
ROUNDED ON pt, pt RESTING IN BED WITH EYES CLOSED. RR EVEN AND UNLABORED. BOOSTED pt IN BED WITH HELP FROM ISIDRO NICHOLS. 75 MLS DRAINED FROM OWENS CATHETER, URINE NOTED IN OWENS TUBING NEAR INSERTION OF OWENS CATHETER, UNABLE TO FULLY DRAIN INTO COLLECTION BAG. OWENS FLUSHED WITH APPROX 8MLS NS. ISIDRO NICHOLS ALSO IN ROOM TO ASSESS. WILL CONTINUE TO MONITOR OWENS CATHETER OUTPUT. VSS, pt TITRATED FROM 2.5LNC TO 2LNC, DID NOT RATE PAIN, BUT DENIED NEED FOR PAIN MEDICATION. NO FACIAL GRIMACING NOTED AT REST. pt INITIALLY REQUESTING WATER, pt THEN CHANGES MIND D/T INABILITY TO SIT UPRIGHT AT THIS TIME, STATING, "I'M JUST TOO TIRED, I JUST WANT TO REST". PRN ZOFRAN GIVEN FOR NAUSEA, ASPIRATION PRECUATIONS REMAIN IN PLACE ALONG WITH ASPEN NECK COLLAR. AIRWAY PATENT, NO ISSUES WITH SWALLOWING NOTED. NO FURTHER NEEDS, CALL LIGHT IN REACH.
--- NOTE | 2021-03-26 03:45 | NUR ---
pt RESTING IN BED, EYES CLOSED. AWOKE TO ASSESS URINE OUTPUT, UO 50MLS VIA OWENS CATHETER. pt ASKED TO SIT UP TO GET A DRINK OF WATER, WATER AT BEDSIDE AND WITHIN REACH. PRN PAIN MEDICATION GIVEN FOR 8/10 PAIN, SEE EMAR. pt BOOSTED IN BED, REFUSES TO ALLOW REPOSITIONING VIA FLOATING HIPS, pt AGAIN EDUCATED ON IMPORTANCE TO CHANGE POSITIONS IN BED TO PREVENT SKIN BREAKDOWN, pt VERBALIZED UNDERSTANDING AND DEMONSTRATED ABILITY TO LIFT HIPS OFF OF BED BRIEFLY. NO REDDNESS OR SKIN BREAKDOWN NOTED AT THIS TIME, WILL CONTINUE TO MONITOR. ASPEN NECK COLLAR REMAINS IN PLACE, HOB ELEVATED WITH ASPIRATION PRECAUTIONS IN PLACE, HOB TO 34 DEGREES. NO ISSUES WITH SWALLOWING NOTED, AIRWAY REMAINS INTACT. pt TITRATED TO 1LNC, SPO2 LOW 90'S, RR EVEN AND UNLABORED. NO FURTHER NEEDS, CALL LIGHT IN REACH.
--- NOTE | 2021-03-26 05:15 | NUR ---
IN TO GET VITALS, CHECK ON URINE OUTPUT, ICE WATER FILLED, BLADDER SCANNER BROUGHT TO RM FOR RN, NO FURTHER NEEDS AT THIS TIME
--- NOTE | 2021-03-26 05:52 | NUR ---
ASSISTED PRIMARY RN DANIEL WITH BLADDER SCAN AND FLUSHING OWENS CATH. COULD NOT SCAN MORE THAN 4MLS IN BLADDER WHICH IS MOST LIKELY OWENS CATH BALLOON. SHE REMAINS IN ROOM WITH PT AT THIS TIME.
--- NOTE | 2021-03-26 06:05 | NUR ---
pt BLADDER SCANNED BY THIS RN AND ADVERTISING JOB TITLES CEDRIC. OWENS CATHETER ALSO FLUSHED WITH AIR BY ADVERTISING JOB TITLES CEDRIC. OWENS CARE DONE BY THIS RN, OWENS CATHETER ALSO MANIPULATED. HIGHEST BLADDER SCAN RESULT OF 4MLS. pt DENIES PAIN WITH BLADDER SCANNING. PER PARAMETERS, pt SHOULD HAVE VOIDED 351 MLS FOR SHIFT, BUT ONLY VOIDED 275MLS TOTAL THIS SHIFT. DISCUSSED I&O'S WITH DR KRUEGER, TELEPHONE ORDER READ BACK FOR LR @125MLS/HR MAINTENANCE FLUIDS. ADVERTISING JOB TITLES UPDATED.
--- NOTE | 2021-03-26 06:26 | NUR ---
IV FLUIDS INFUSING DIRECTED, IV SITE WNL AND FLUSHES EASILY. NO ADDITIONAL NEEDS, SPO2 LIW TO MID 90'S ON 1LNC, ATTEMPTED TO TITRATE TO RA, SPO2 DROPPED TO MID TO UPPER 80'S. CALL LIGHT IN REACH AND BED ALARM ON.
--- NOTE | 2021-03-26 07:15 | NUR ---
Report received from Julee FELIX. Pt is resting in bed with eyes closed, resp even and unlabored. IVF infusing WNL. No needs identified, call light in reach. Will continue plan of care.
--- NOTE | 2021-03-26 08:23 | NUR ---
BREAKFAST DELIVERED TO PT. PT INITIALLY DECLINES ANY MOVEMENT STATING SHE DOESN'T WANT TO SIT UP OR BE MOVED AT ALL. EDUCATION DONE WITH PT REGARDING SAFETY ISSUES OF TRYING TO EAT WHILE LYING DOWN. PT AGREES TO GET UP TO CHAIR. PT MOVES SELF TO EDGE OF BED. ONE PERSON MINIMAL ASSIST TO SIT, STAND AND TRANSFER TO CHAIR. CONTACT GUARD ASSIST MORE FOR ENCORUAGEMENT AND SUPPORT THAN PHYSICAL NEED. PT IS STEADY ON FEET AND ABLE TO WALK TO CHAIR AND SIT WITH OUT ISSUE. PT CONTINUES TO SHOUT AT TIMES STATING "I JUST DON'T FEEL LIKE NORMAL!" PT ENCOURAGED TO PLACE HEARING AIDS, PT STATES "NO I JUST WANT TO YELL." PT EATING BREAKFAST. WATER REFILLED. LINENS CHANGED. PTS PRIMARY RN AT BEDSIDE DURING TRANSFER FOR MORNING MEDICATIONS AND CARES. PT NOTED TO DESATURATE TO 87% ON ROOM AIR DURING TRANSFER. PT PLACED BACK ON 1L O2 BY NC. CALL LIGHT WITHIN REACH.
--- NOTE | 2021-03-26 08:25 | NUR ---
Scheduled medications administered along with PRN oxycodone and zofran. Assessment complete. Patient up to chair for breakfast, states that chewing is difficult and "makes her neck hurt more", oatmeal and yogurt provided. Pt continually moaning and complaining of pain in her neck. Brace WNL in place. Repositioned in chair with pillows supporting back, patient states that helps her pain. Lungs clear, currently on 0.5L NC O2 with SPO2 93%. When attempted on room air SPO2 reads 88%. Educated regarding pain control, activity, all medications provided. Pt is anxious and hard of hearing. Requires frequent reorientation to cares being performed, needs reminding not to yell/speak harshly with nursing staff. Reminded about call light use, placed in reach.
--- NOTE | 2021-03-26 10:00 | NUR ---
Call light answered, pt requests to go back to bed. Pt states pain is still present, dozes off mid conversation. 0.5L O2 NC in place. Pt needs assistance boosting herself in bed. HOB elevated as tolerated. Abarca catheter removed WNL per order. IVF infusing WNL. Call light and personal phone in reach. No further needs.
--- NOTE | 2021-03-26 13:50 | NUR ---
PT REFUSES A SHOWER, PT WANTS TO NAP INSTEAD. PT IS INDEPENDENT UP TO THE BATHROOM TO VOID AND IS BACK IN THE BED. CALL LIGHT WITHIN REACH. NO FURTHER NEEDS AT THIS TIME.
--- NOTE | 2021-03-26 16:00 | NUR ---
Pt's hair washed in bed, showered with 1PA. Linens and gown changed. Pt expresses gratitude for staff, states no pain. oral care complete. IVF infusing WNL.
--- NOTE | 2021-03-26 19:20 | NUR ---
SHIFT REPORT RECEIVED FROM [facility] ISIDRO GRANDE. pt RESTING IN BED, SBA TO BATHROOM AND BACK TO BED. SPO2 MID 80'S ON RA, 2LNC PLACED AND SPO2 SUSTAINING LOW 90'S. ASPEN COLLAR REMAINS IN PLACE AND IN SECURE POSITION. AIRWAY PATENT, NO ISSUES WITH SWALLOWING NOTED. IV FLUIDS INFUSING DIRECTED, IV SITE WNL. NO ADDITIONAL NEEDS VERBALIZED, pt STATES, "I FEEL SO MUCH BETTER, I MIGHT BE ABLE TO GO HOME TOMORROW". CALL LIGHT IN REACH.
--- NOTE | 2021-03-26 20:50 | NUR ---
IN TO GET VITALS, SITTING WITH PT TO PROVIDE ANXITIY RELEIF, PT "WATCHED A SCARY MOVIE", NOW HEARING THE VENTELATION WORSENING HER ANXITIY, PT REASURRED OF WEATHER AND CHATTED AWHILE SO RN COULD GET TO PTs RM, ICE WATER FILLED, NO FURTHER NEEDS AT THIS TIME
--- NOTE | 2021-03-26 20:52 | NUR ---
PT CALLED YELLING "HELP, I NEED MY PILLS" UPON ENTERING ROOM PT STATES SHE NEEDS HELP NOW AND WANTS HER PILLS NOW. ASKED PT IF SHE IS IN PAIN SHE SAID "NO, I AM SCARED". PT STATES SHE HEARD A STORM OUTSIDE AFTER WATCHING A SCARY MOVIE AND SAYS SHE WAS CALLING FOR HELP. REMINDED PT TO USE CALL LIGHTS SINCE DOORS ARE CLOSED FOR NEG PRESSURE, MAKING I HARDER TO HEAR. ALSO TOLD PT THE NOISE SHE IS HEARING IS THE VENTILATION SYSTEM AND THERE IS NO STORM. PT DEMANDS SHE HAVE HER PILLS TO HELP WITH ANXIETY SO SHE CAN SLEEP. ASKED PT WHAT SHE TAKES AT HOME AND SHE SAID TRAZADONE. BROUGHT PT 50MG TRAZADONE AND MELATONIN TO HELP HER CALM DOWN. ADVISED HER PRIMARY RN DANIEL WILL GIVE HER THE REST OF HER PILLS SOON SHE CAN BUT SHE IS IN A ROOM WITH ANOTHER PT. PT STARTING TO CALM DOWN BUT SAYS SHE DOES NOT WANT TO BE ALONE. ASKED NICOLAS MARK TO SIT WITH HER UNTIL DANIEL FELIX CAN GET INTO ROOM.
--- NOTE | 2021-03-26 21:15 | NUR ---
IN ROOM TO ASSESS pt AND ADMINISTER REMAINING EVENING MEDS, SEE EMAR. DISCUSSED WITH pt PROPER COMMUNICATION TO HOSPITAL STAFF, pt RECENTLY YELLING AT [facility], SEE PREVIOUS NOTE FROM WEIGHER AND CHARGER. pt APPEARS CALM AND RELAXED AT THIS TIME, pt APOLOGETIC AND STATES, "I'M SORRY, I WAS WATCHING A SCARY MOVIE EARLIER AND I GOT SCARED AND THOUGHT I HEARD A STORM". pt EDUCATED THAT NOISES HEARD ARE FROM AIR DUCT SYSTEM. IV FLUIDS INFUSING DIRECTED, SITE WNL. pt A/OX4, DENIES PAIN. ASPEN NECK COLLAR REMAINS IN PLACE AND IN CORRECT ALIGNMENT, NO ABNORMALITIES WITH COLLAR NOTED. AIRWAY PATENT, NO ISSUES WITH SWALLOWING NOTED. NO ADDITIONAL NEEDS, CALL LIGHT IN REACH.
--- NOTE | 2021-03-26 22:08 | NUR ---
PT'S BED ALARM SOUNDED SHE WAS MOVING IN BED, REQUESTED WARM BLANKETS. PT DENIES FURTHER NEEDS. CALL LIGHT IS CLOSE AND BED ALARM IS ON.
--- NOTE | 2021-03-26 23:22 | NUR ---
BED ALARM SET OFF, PT OOB TRYING TO GET TO THE TOILET, ASSISTED PT TO THE BATHROOM, PT HAS SOME INCONT ON THE FLOOR ON THE WAY TO THE TOILET, NEW DRAW SHEET AND CHUX IN PLACE, PT BACK TO BED, BOOSTED WITH RNs HELP, BED ALARM IN SET, SIDERAILS IN PLACE PER PT REQUEST, IV ALARMING, RN NOTIFIED, NO FURTHER NEEDS AT THIS TIME
--- NOTE | 2021-03-26 23:33 | NUR ---
IV PUMP BEEPING, NEW BAG OF FLUID NOW INFUSING PER ORDER. PT COMPLAINS ABOUT SOUND OF VENTILATION SYSTEM, CLOSED BATHROOM DOOR PER PT REQUEST. CALL LIGHT IS CLOSE AND BED ALARM IS ON.
--- NOTE | 2021-03-26 23:51 | NUR ---
ROUNDED ON pt, pt AWAKE AND RESTING IN BED. pt STATES SHE IS HAVING A "TERRIBLE NIGHT" BECAUSE OF SCARY MOVIE SHE WAS PREVIOUSLY WATCHING. pt CALM AND APPRECIATIVE AT THIS TIME, DENIES NEEDS OR CONCERNS. SPOT CHECKED, SPO2 UPPER 90'S ON 2LNC, TITRATED TO 1LNC, SPO2 SUSTAINING IN MID 90'S. HR WNL. CALL LIGHT IN REACH AND BED ALARM ON. IV FLUIDS INFUSING DIRECTED, SITE WNL.
--- NOTE | 2021-03-26 23:59 | NUR ---
pt DESATS AT TIMES WHILE ON PO PAIN MEDS. O2 NEEDS VARY FROM RA TO 2LNC. PROTOCOL ORDER PLACED FOR O2 THERAPY AND TO SPOT CHECK. HOGSHEAD MAT INSPECTORISIDRO STEELE UPDATED AND AWARE.
--- NOTE | 2021-03-27 00:56 | NUR ---
BED ALARM GOING OFF, pt UP AND TRYING TO GET OOB TO VOID, STATING, "HURRY UP, I GOT TO GO PEE". BEDSIDE WATER SPILLED ON TABLE AND FLOOR. CORDS TANGLED UP. pt SBA TO VOID AND LEWIS TO BED. REPORTS PAIN ON RIGHT SIDE OF HEAD AND STATES, "IT FEELS LIKE IT'S RUBBING, CAN WE JUST TAKE IT OFF". pt EDUCATED ON NEED TO LEAVE COLLAR IN PLACE. LINEN TECH AND THIS RN ASSESSED ASPEN COLLAR, NO REDDNESS NOTED AT THIS TIME. COLLAR REMAINS WNL. PRN PAIN MEDICATION GIVEN, SEE EMAR. BED ALARM ON, 1LNC IN PLACE. NO FURTHER NEEDS. CALL LIGHT IN REACH.
--- NOTE | 2021-03-27 01:39 | NUR ---
ROUNDED ON pt, pt FOUND RESTING IN BED WITH EYES CLOSED. RESPIRATIONS EVEN AND UNLABORED, RATE 16-18. NO FACIAL GRIMACING NOTED OR OTHER OUTWARD S/SX OF PAIN WITNESSED AT THIS TIME. BED ALARM ON, 1LNC IN PLACE. CALL LIGHT IN REACH.
--- NOTE | 2021-03-27 02:25 | NUR ---
ROUNDED ON pt, RESPIRATIONS EVEN AND UNLABORED. SPO2 LOW 90'S ON 1LNC. ASPEN NECK COLLAR REMAINS IN PLACE, ASPIRATION PRECAUTIONS IN PLACE. BED ALARM ON AND CALL LIGHT IN REACH. IV SITE WNL.
--- NOTE | 2021-03-27 02:38 | NUR ---
BED ALARM GOING OFF, pt AGAIN ATTEMPTING TO GET OOB TO VOID. SBA TO VOID AND BACK IN BED, ASSESSMENT COMPLETE. NO ACUTE CHANGES. BED ALARM RESUMED. CALL LIGHT IN REACH.
--- NOTE | 2021-03-27 03:42 | NUR ---
PT WAS TURNING OVER IN BED, BED ALARM SET OFF BY ACCIDENT, NO FURTHER NEED AT THIS TIME
--- NOTE | 2021-03-27 04:30 | NUR ---
pt RESTING IN BED WITH EYES CLOSED, RR EVEN AND UNLABORED. NO DISTRESS NOTED. CALL LIGHT IN REACH.
--- NOTE | 2021-03-27 04:53 | NUR ---
CALL LIGHT SET OFF, PT WAS ASSISTED UP TO THE TOILET, THEN BACK TO BED, PT IS HAVING SOME NECK PAIN, ASKING ABOUT PAIN MEDS, BED ALARM SET, RN CHECKING FOR PT
--- NOTE | 2021-03-27 05:00 | NUR ---
CALL LIGHT ON. pt REQUESTED PRN PAIN MEDICATION FOR 01/07 PAIN. GIVEN (SEE MAR). NO FURTHER REQUESTS AT THIS TIME. CALL LIGHT WITHIN REACH.
--- NOTE | 2021-03-27 06:30 | NUR ---
IN TO ASSIST PT TO THE TOILET SBA, PT HAD GOTTEN OOB WITHOUT CALLING, BACK TO BED, PT C/O OF NECK PAIN AND ALSO COLLAR IS PINCHING NERVES, WILL HAVE RN TO CHECK ON PT, PT NOW ASKING FOR PAIN MEDS, WILL HAVE RN CHECK FOR PT, NO FURTHER NEEDS AT THIS TIME
--- NOTE | 2021-03-27 06:45 | NUR ---
WITH HELP FROM FLOAT THOM WEAVER NECK COLLAR READJUSTED. ISIDRO CONWAY IN ROOM ADMINSITERING PAIN MEDICATION, SEE EMAR.
--- NOTE | 2021-03-27 07:38 | NUR ---
Report received from Julee FELIX. Pt resting in bed with eyes closed, respirations even and unlabored. No needs identified at this time. Will continue plan of care.
--- NOTE | 2021-03-27 08:30 | NUR ---
Scheduled medications administered, assessment complete. Pt asking for dilaudid, scheduled tylenol and PRN oxycodone adminstered at this time as dilaudid not yet available. Pt is anxious regarding cares, extensive education, time, reassurance and encouragement provided. Pt able to transfer SBA to chair for breakfast. Cervical brace in place WNL. IVF infusing WNL. VSS, A+O. Assessment WNL
--- NOTE | 2021-03-27 09:50 | NUR ---
See mar. Patient's son at bedside, reviewed plan of care and patient and her son are agreeable, all questions answered. pt does not c/o pain at this time, states she had a "rough night" but reports "feeling better now". SBA to bathroom. IVF infusing. VSS, I/Os complete.
--- NOTE | 2021-03-27 11:00 | NUR ---
Physical therapy works with patient
[2021-03-27] MEDS ORDERED: ACETAMINOPHEN500 MG PO (11:01)
[2021-03-27] MEDS ORDERED: OXYCODONE HCL5 MG PO (11:02)
[2021-03-27] MEDS ORDERED: PREDNISONE20 MG PO (11:05)
--- NOTE | 2021-03-27 13:25 | NUR ---
Discharge teaching provided to patient and son at bedside. Both verbalize understanding and all questions answered. Prescriptions given and instructions provided. IV removed WNL. VSS, A+O. Pt assisted with getting dressed. Personal belongings returned and room checked. Wheelchair ride provided out to son's vehicle to provide ride home.
== END 2021-03-27 13:25 | disposition home or self-care (01) | DRG 552 ==
LOC: ED 06:11 → MS 12:22
PROVIDERS: ADMIT Student in an Organized Health Care Education/Training Program; ATTEND Student in an Organized Health Care Education/Training Program
DX: S12.120A Other displaced dens fracture, initial encounter for closed fracture (principal); Z20.822 Contact with and (suspected) exposure to COVID-19; E87.6 Hypokalemia; I10 Essential (primary) hypertension; L21.9 Seborrheic dermatitis, unspecified; F32.9 Major depressive disorder, single episode, unspecified; Z87.891 Personal history of nicotine dependence; Z96.651 Presence of right artificial knee joint; Z88.0 Allergy status to penicillin; Z88.5 Allergy status to narcotic agent; Z88.6 Allergy status to analgesic agent; Z88.1 Allergy status to other antibiotic agents; Z88.2 Allergy status to sulfonamides; Z88.8 Allergy status to other drugs, medicaments and biological substances; Z79.899 Other long term (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 therapy; W19.XXXA Unspecified fall, initial encounter
CPT/HCPCS: 72125; 80048; 80053; 80500; 81001; 82553; 83735; 85025; 94760; 94762; 96374; 96375; 96376; 97162; 97530; 99285-25; C9803; G0480; J1170; J1650; J2405; J3480; J7030; J7060; J7121; J7512; U0003

== ENCOUNTER 2021-03-30 11:45 | Emergency (ER) | payer MEDICARE, OTHER ==
[~2021-03-30] VITALS: Ht 175.3 cm; Wt 72.7 kg
[~2021-03-30 11:45] MED LIST changes: +ACETAMINOPHEN500 MG PO; +DOXYCYCLINE HY100 MG PO; +OXYCODONE HCL5 MG PO
--- OUTSIDE RECORDS SUMMARY | 2021-03-30 11:54 | XMS ---
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 EAidan VISIT COUNT (12 MO.) [address] [place] [address] TOTAL 4 NOTE: Visits indicate total known visits. ED/UCC VISIT TRACKING (12 MO.) 03/30/2021 11:46 [facility] TYPE: Emergency COMPLAINT: - NECK PAIN 03/25/2021 06:12 [facility] TYPE: Emergency [...] drugs, medicaments and biological substances - Other skilled nursing (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 therapy - Allergy status to narcotic agent INPATIENT VISIT TRACKING (12 MO.) 03/25/2021 12:22 [facility] TYPE: Medical Surgical COMPLAINT: - CERVICAL SPINE FRACTURE DIAGNOSES: - Allergy status to narcotic agent - Allergy status to analgesic agent - Allergy status to penicillin - Seborrheic dermatitis, unspecified - Personal history of nicotine dependence - Allergy status to analgesic agent - Allergy status to penicillin - Allergy status to sulfonamides - Major depressive disorder, single episode, unspecified - 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 long 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 operator (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 therapy - Essential (primary) hypertension - Major depressive disorder, single episode, unspecified - Allergy status to other drugs, medicaments and biological substances - Allergy status to narcotic agent - Hypokalemia - Allergy status to other antibiotic agents - Presence of right artificial knee joint - Other long distance operator (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 therapy - Unspecified fall, initial encounter - Essential (primary) hypertension - Personal history of nicotine dependence - Presence of right artificial knee joint - Allergy status to other drugs, medicaments and biological substances - Hypokalemia - Allergy status to sulfonamides - Seborrheic dermatitis, unspecified - Allergy status to other antibiotic agents - Unspecified fall, initial encounter - Other displaced dens fracture, initial encounter for closed fracture 03/21/2021 04:42 [facility] TYPE: Observation COMPLAINT: - ANGIO EDEMA DIAGNOSES: - Major depressive disorder, single episode, unspecified - long-term (current) use of aspirin - Essential (primary) hypertension - Presence of right artificial knee joint - Angioneurotic edema, initial encounter - Personal history of nicotine dependence - Gastro-esophageal reflux disease without esophagitis [email or web address]
--- NOTE | 2021-03-31 18:55 | EKG ---
[facility] [address] [facility] [place] [address] Signed Normal sinus rhythm Minimal voltage criteria for LVH, may be normal variant ( R in aVL ) Nonspecific ST and T wave abnormality Prolonged QT Abnormal ECG No previous ECGs available Confirmed by RENATA PACKER MD ([id number] on 03/31/2021 6:55:34 PM Electronically Signed By: RENATA PACKER MD 03/31/21 1855 PATIENT NAME: MURPHY CHENG Electrocardiogram DATE OF : 48 PHYSICIAN: RENATA PACKER MD REPORT #: [id number] REPORT IS CONFIDENTIAL AND NOT TO BE RELEASED WITHOUT AUTHORIZATION
--- NOTE | 2021-03-31 18:56 | EKG ---
[facility] [address] [facility] [place] [address] Signed Normal sinus rhythm Nonspecific ST and T wave abnormality Abnormal ECG When compared with ECG of 30-MAR-2021 13:28, (Unconfirmed) ST now depressed in Inferior leads Confirmed by RENATA PACKER MD ([id number] on 03/31/2021 6:55:46 PM Electronically Signed By: RENATA PACKER MD 03/31/21 1856 PATIENT NAME: MURPHY CHENG Electrocardiogram DATE OF : 48 PHYSICIAN: RENATA PACKER MD REPORT #: [id number] REPORT IS CONFIDENTIAL AND NOT TO BE RELEASED WITHOUT AUTHORIZATION
== END 2021-03-30 15:48 | disposition short-term general hospital (02) ==
LOC: ED 11:45
DX: S12.100A Unspecified displaced fracture of second cervical vertebra, initial encounter for closed fracture (principal); I11.0 Hypertensive heart disease with heart failure; I50.9 Heart failure, unspecified; I21.4 Non-ST elevation (NSTEMI) myocardial infarction; E87.1 Hypo-osmolality and hyponatremia; E87.6 Hypokalemia; Z20.822 Contact with and (suspected) exposure to COVID-19; Z87.891 Personal history of nicotine dependence; Z88.0 Allergy status to penicillin; Z88.6 Allergy status to analgesic agent; Z88.8 Allergy status to other drugs, medicaments and biological substances; Z88.2 Allergy status to sulfonamides; Z88.1 Allergy status to other antibiotic agents; Z79.899 Other long term (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 therapy; Z79.52 Long term (current) use of systemic steroids; X58.XXXA Exposure to other specified factors, initial encounter
CPT/HCPCS: 71045; 80053; 80500; 83605; 83880; 84484; 85025; 93005; 93010; 96374; 96375; 99285-25; C9803; J1940; J3010; U0003

== ENCOUNTER 2022-08-28 17:26 | Emergency (ER) | payer MEDICARE, OTHER ==
[~2022-08-28] VITALS: Ht 175.3 cm; Wt 76.3 kg
[2022-08-28] MEDS ORDERED: GABAPENTIN100 MG PO (18:12)
[2022-08-28] MEDS ORDERED: ZYRTEC10 M3 PO (18:36)
[2022-08-28] MEDS ORDERED: EPIPEN 2-P0.3 MG/0.3 IM (18:36)
[2022-08-28 19:18] VITALS: BP 171/86
== END 2022-08-28 19:18 | disposition home or self-care (01) ==
LOC: ED 17:26
DX: T78.3XXA Angioneurotic edema, initial encounter (principal); I10 Essential (primary) hypertension; Z87.891 Personal history of nicotine dependence; Z96.651 Presence of right artificial knee joint; Z88.0 Allergy status to penicillin; Z88.5 Allergy status to narcotic agent; Z88.8 Allergy status to other drugs, medicaments and biological substances; Z79.899 Other long term (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 therapy
CPT/HCPCS: A9270; J0171; J1100; J1200

== ENCOUNTER 2023-04-27 09:43 | Emergency (ER) | payer OTHER, MEDICARE ==
[~2023-04-27] VITALS: Ht 175.3 cm; Wt 70.6 kg
[~2023-04-27 09:43] MED LIST changes: +ATORVASTATIN CA20 MG PO; +BETAMETHASONE D15 G2 TOP; +ELIQUIS5 MG PO; +GABAPENTIN100 MG PO; +IBUPROFEN400 MG PO; +LISINOPRIL5 MG PO; +METOPROLOL TART25 MG PO; +VENTOLIN HFA18 GM PO; +ZYRTEC10 M3 PO
[2023-04-27] MEDS ORDERED: WELLBUTRIN XL150 MG PO (09:56)
[2023-04-27] MEDS ORDERED: HYDROCODON-ACE1 EA10 PO (11:01)
[2023-04-27] MEDS ORDERED: ONDANSETRON ODT8 MG PO (11:01)
[2023-04-27 11:39] VITALS: BP 166/88
== END 2023-04-27 12:02 | disposition home or self-care (01) ==
LOC: ED 09:43
DX: S42.211A Unspecified displaced fracture of surgical neck of right humerus, initial encounter for closed fracture (principal); T78.3XXA Angioneurotic edema, initial encounter; I10 Essential (primary) hypertension; W01.0XXA Fall on same level from slipping, tripping and stumbling without subsequent striking against object, initial encounter; Z87.891 Personal history of nicotine dependence; Z96.651 Presence of right artificial knee joint; Z88.0 Allergy status to penicillin; Z88.5 Allergy status to narcotic agent; Z88.1 Allergy status to other antibiotic agents; Z88.8 Allergy status to other drugs, medicaments and biological substances
CPT/HCPCS: 73060; 73200; 96374; 96375; 99283-25; J2405; J2930

== ENCOUNTER 2023-09-22 05:48 | Emergency (ER) | payer MEDICARE, OTHER ==
[~2023-09-22] VITALS: Ht 175.3 cm; Wt 68.0 kg
[~2023-09-22 05:48] MED LIST changes: +HYDROCODON-ACE1 EA10 PO; +ONDANSETRON ODT8 MG PO; +WELLBUTRIN XL150 MG PO
--- OUTSIDE RECORDS SUMMARY | 2023-09-22 05:51 | XMS ---
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 EAidan VISIT COUNT (12 MO.) 4 [facility] TOTAL 5 NOTE: Visits indicate total known visits. ED/UCC VISIT TRACKING (12 MO.) 09/22/2023 05:49 [facility] TYPE: Emergency COMPLAINT: - ALLERGIC REATION 07/16/2023 01:30 [facility] TYPE: Emergency COMPLAINT: - ALLERGIC REACTION DIAGNOSES: - Allergy status to narcotic agent - Allergy status to other antibiotic agents - Allergy status to other drugs, medicaments and biological substances - Allergy status to penicillin - Angioneurotic edema, initial encounter - Essential (primary) hypertension - Other senior care (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 therapy - Personal history of nicotine dependence 04/27/2023 09:44 [facility] TYPE: Emergency COMPLAINT: - GLF, SHOULDER PAIN DIAGNOSES: - Allergy status to narcotic agent - Allergy status to other antibiotic agents - Allergy status to other drugs, medicaments and biological substances - Allergy status to penicillin - Angioneurotic edema, initial encounter - Essential (primary) hypertension - Fall on same level from slipping, tripping and stumbling without subsequent striking against object, initial encounter - Other specified soft tissue disorders - Personal history of nicotine dependence - Presence of right artificial knee joint - Unspecified displaced fracture of surgical neck of right humerus, initial encounter for closed fracture 01/31/2023 15:27 [facility] TYPE: Emergency DIAGNOSES: - Disorientation, unspecified - Altered Mental Status - Rib Pain 01/29/2023 14:34 [facility] TYPE: Emergency COMPLAINT: - SHUNT ISSUE DIAGNOSES: - Allergy status to narcotic agent - Allergy status to other antibiotic agents - Allergy status to penicillin - Allergy status to sulfonamides - Contact with and (suspected) exposure to COVID-19 - Dizziness and giddiness - Essential (primary) hypertension - Other senior care (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 therapy - Personal history of nicotine dependence - Presence of cerebrospinal fluid drainage device - Weakness INPATIENT VISIT TRACKING (12 MO.) No inpatient visits to display in this time frame [email or web address]
[2023-09-22] MEDS ORDERED: FAMOTIDINE 20 MG/ 2 ML VIAL IV ONE (06:00)
[2023-09-22] MEDS ORDERED: CETIRIZINE HCL 10 MG TAB PO ONE (06:00)
[2023-09-22] MEDS ORDERED: DEXAMETHASONE SOD PHOS 10 MG/ML VIAL IV ONE (06:00)
[2023-09-22] MEDS ORDERED: PREDNISONE20 MG PO (06:44)
[2023-09-22 07:01] VITALS: BP 157/82
== END 2023-09-22 07:04 | disposition home or self-care (01) ==
LOC: ED 05:48
DX: T78.3XXA Angioneurotic edema, initial encounter (principal); I10 Essential (primary) hypertension; Z87.891 Personal history of nicotine dependence; Z88.0 Allergy status to penicillin; Z88.6 Allergy status to analgesic agent; Z88.5 Allergy status to narcotic agent; Z88.8 Allergy status to other drugs, medicaments and biological substances; Z88.1 Allergy status to other antibiotic agents; Z88.2 Allergy status to sulfonamides; Z79.899 Other long term (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 therapy; Z79.1 Long term (current) use of non-steroidal anti-inflammatories (NSAID)
CPT/HCPCS: 96374; 96375; 99283-25; J1100

== ENCOUNTER 2023-12-13 03:24 | Emergency (ER) | payer MEDICARE, OTHER ==
[~2023-12-13] VITALS: Ht 175.3 cm; Wt 68.5 kg
--- OUTSIDE RECORDS SUMMARY | 2023-12-13 03:25 | XMS ---
PreManage Notification: MURPHY CHENG Security Litigation Claim Representative Events No recent Security Events currently on file CRITERIA MET - 6 ED Visits in 6 Months - [facility] - [facility] - 2 Visits in 30 Days CARE PROVIDERS ABE CARPENTER Physical Medicine \T\ Rehabilitation Current PHONE: [phone] JENNIFER TEIXEIRA Physician Fireworks Assembly Supervisor Current PHONE: Unknown ROLY PICHARDO Internal Medicine Current PHONE: Unknown Stephanie has no Care Guidelines for this patient. E.D. VISIT COUNT (12 MO.) 8 [facility] TOTAL 9 NOTE: Visits indicate total known visits. ED/UCC VISIT TRACKING (12 MO.) 12/13/2023 03:24 [facility] TYPE: Emergency COMPLAINT: - THROAT CLOSING 12/08/2023 16:08 [facility] TYPE: Emergency COMPLAINT: - LOW SODIUM/LOWER BACK PAIN 12/03/2023 13:56 [facility] TYPE: Emergency COMPLAINT: - WEAKNESS DIAGNOSES: - Allergy status to narcotic agent - Allergy status to other drugs, medicaments and biological substances - Allergy status to penicillin - Essential (primary) hypertension - Headache, unspecified - Hypo-osmolality and hyponatremia - Other detention (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 therapy - Personal history of nicotine dependence - Weakness 10/15/2023 10:34 [facility] TYPE: Emergency COMPLAINT: - FACIAL SWELLING DIAGNOSES: - Allergy status to narcotic agent - Allergy status to other drugs, medicaments and biological substances - Allergy status to penicillin - Angioneurotic edema, initial encounter - Essential (primary) hypertension - Localized swelling, mass and lump, head - Other detention (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 therapy - Personal history of nicotine dependence - Presence of right artificial knee joint 09/22/2023 05:49 [facility] TYPE: Emergency COMPLAINT: - ALLERGIC REATION DIAGNOSES: - Allergy status to analgesic agent - Allergy status to narcotic agent - Allergy status to other antibiotic agents - Allergy status to other drugs, medicaments and biological substances - Allergy status to penicillin - Allergy status to sulfonamides - Angioneurotic edema, initial encounter - Edema of right orbit - Essential (primary) hypertension - 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 inspector (current) use of non-steroidal anti-inflammatories (NSAID) - Other termite treater (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 therapy - Personal history of nicotine dependence 07/16/2023 01:30 [facility] TYPE: Emergency COMPLAINT: - ALLERGIC REACTION DIAGNOSES: - Allergy status to narcotic agent - Allergy status to other antibiotic agents - Allergy status to other drugs, medicaments and biological substances - Allergy status to penicillin - Angioneurotic edema, initial encounter - Essential (primary) hypertension - Other termite treater (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 therapy - Personal history of [...] initial encounter for closed fracture 01/31/2023 15:27 [facility] TYPE: Emergency DIAGNOSES: - Disorientation, unspecified - Altered Mental Status - Rib Pain 01/29/2023 14:34 [facility] TYPE: Emergency COMPLAINT: - SHUNT ISSUE DIAGNOSES: - Allergy status to narcotic agent - Allergy status to other antibiotic agents - Allergy status to penicillin - Allergy status to sulfonamides - Contact with and (suspected) exposure to COVID-19 - Dizziness and giddiness - Essential (primary) hypertension - Other termite treater (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 therapy - Personal history of nicotine dependence - Presence of cerebrospinal fluid drainage device - Weakness INPATIENT VISIT TRACKING (12 MO.) No inpatient visits to display in this time frame [email or web address]
[2023-12-13] MEDS ORDERED: methylPREDNISolone SOD SUCC 125 MG/2 ML VIAL IV ONE (03:45)
[2023-12-13] MEDS ORDERED: diphenhydrAMINE HCL 50 MG/ML VIAL IV ONE (03:45)
[2023-12-13] MEDS ORDERED: FAMOTIDINE 20 MG/ 2 ML VIAL IV ONE (03:45)
[2023-12-13 08:21] VITALS: BP 170/93
== END 2023-12-13 08:21 | disposition home or self-care (01) ==
LOC: ED 03:24
DX: T78.3XXA Angioneurotic edema, initial encounter (principal); I10 Essential (primary) hypertension; Z79.899 Other long term (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 therapy; Z88.0 Allergy status to penicillin; Z88.6 Allergy status to analgesic agent; Z88.5 Allergy status to narcotic agent; Z88.1 Allergy status to other antibiotic agents; Z88.8 Allergy status to other drugs, medicaments and biological substances; Z87.891 Personal history of nicotine dependence
CPT/HCPCS: 96374; 96375; 99283-25; J1200; J2919